=== PATIENT | male | born 1945 | race Caucasian/White ===

== ENCOUNTER 2016-07-13 12:03 | Emergency (ER) | payer MEDICARE, BC ==
[~2016-07-13] VITALS: Ht 170.2 cm; Wt 75.0 kg
[2016-07-13 12:12] VITALS: BP 158/84; PULSE 74; RESP 15; TEMP 97.9; O2SAT 98
[2016-07-13] MEDS ORDERED: TRAM50TA PO (12:14)
[2016-07-13] MEDS ORDERED: DICY10CA12 PO (12:14)
[2016-07-13] MEDS ORDERED: PREG25 PO (12:14)
--- NOTE | 2016-07-13 12:16 | PD ---
HPI Chief Complaint: Back/ Neck Pain or Injury Time Seen by Provider: 12:16 Travel History International Travel<30 days: No Contact w/Intl Traveler<30days: No Traveled to known affect area: No History of Present Illness HPI 70-year-old male with history of sciatica presents to emergency department for evaluation of exacerbation of this pain. Patient states he has been to the chiropractor. Out image x-ray has been complete with outpatient MRI recommended for further evaluation. He has been on several long road trips the last being to [place] and back by bus. The pain lies in his right lower back and at times radiates to his buttock. He has had no saddle paresthesia, loss of bowel or bladder, lower extremity weakness. He does not recall an injury. Has had no recent illnesses, fever, chills. No urinary symptoms. No other symptoms to report. PFSH Past Medical History Cardiovascular Problems: Yes (2 stents) Social History Alcohol Use: No Tobacco Use: No Allergies-Medications (Allergen,Severity, Reaction): Coded Allergies: Avelox (Verified Allergy, Intermediate, Hives, 07/13/16) Codeine (Verified Allergy, Intermediate, 07/13/16) rash Penicillin (Verified Allergy, Intermediate, 07/13/16) rash Reported Meds & Prescriptions Reported Meds & Active Scripts Active Reported Dicyclomine (Dicyclomine HCl) 10 Mg Cap 10 Mg PO DAILY Lyrica (Pregabalin) 25 Mg Cap 25 Mg PO BID PRN Tramadol (Tramadol HCl) 50 Mg Tab 50 Mg PO Q6HR PRN Review of Systems Except as stated in HPI: all other systems reviewed are Neg Physical Exam Narrative GENERAL: Well-nourished elderly male patient, ambulatory with a non-antalgic gait no acute distress SKIN: Warm and dry. HEAD: Atraumatic. Normocephalic. EYES: Pupils equal and round. No scleral icterus. No injection or drainage. ENT: No nasal bleeding or discharge. Mucous membranes pink and moist. NECK: Trachea midline. No JVD. CARDIOVASCULAR: Regular rate and rhythm. No murmur appreciated. RESPIRATORY: No accessory muscle use. Clear to auscultation. Breath sounds equal bilaterally. GASTROINTESTINAL: Abdomen soft, non-tender, nondistended. Hepatic and splenic margins not palpable. MUSCULOSKELETAL: No obvious deformities. No clubbing. No cyanosis. No edema. Positive straight leg right lower extremities. 2+ lower extremity reflex. Tenderness elicited palpation over the right sacroiliac joint. NEUROLOGICAL: Awake and alert. No obvious cranial nerve deficits. Motor grossly within normal limits. Normal speech. PSYCHIATRIC: Appropriate mood and affect; insight and judgment normal. Data Data Last Documented VS Vital Signs Date Time Temp Pulse Resp B/P Pulse Ox O2 Delivery O2 Flow Rate FiO2 07/13/16 12:12 97.9 74 15 158/84 98 Orders Orphenadrine Inj (Norflex Inj) (07/13/16 12:30) Ketorolac Inj (Toradol Inj) (07/13/16 12:30) Splint Or Brace Apply/Monitor (07/13/16 12:33) MDM Medical Decision Making Medical Screen Exam Complete: Yes Emergency Medical Condition: Yes Medical Record Reviewed: Yes Differential Diagnosis Sciatica versus low back strain versus discogenic pain versus radiculopathy Narrative Course 70-year-old male presents to the emergency department for evaluation of exacerbation of right sided sciatica pain. Patient appears without distress. Neuro exam is nonfocal. Tenderness elicited palpation of the right sacroiliac joint. Patient is given quick draw back brace and Norflex and Toradol here in the emergency department. He'll be discharged home with Robaxin and ibuprofen. He is encouraged follow-up with primary care provider and return immediately with any acute worsening of symptoms. Diagnosis Primary Impression: Sciatica of right side Referrals: Primary Care Physician Patient Instructions: General Instructions, Sciatica (ED) Additional Instructions: Avoid heavy lifting, bending, and twisting Wear brace when ambulatory. Do not wear this at all times as it may weaken your core muscles, worsening your back pain Follow-up with a primary care provider Return immediately with any acute worsening of symptoms Med/Other Pt SpecificInfo: Prescription(s) given Scripts Ibuprofen 600 Mg [id number] Mg PO Q8HR PRN (PAIN) #30 TAB Ref 0 Prov:Valeria Aragon 07/13/16 Methocarbamol (Robaxin)500 Mg [id number] Mg PO QID PRN (MUSCLE SPASM) #20 TAB Ref 0 Prov:Valeria Aragon 07/13/16 Disposition: 01 DISCHARGE HOME Condition: Stable Valeria Aragon Jul 13, 2016 12:16
[2016-07-13] MEDS ORDERED: ORPHENADRINE INJ 60 MG/2 ML AMP IM ONE (12:30)
[2016-07-13] MEDS ORDERED: KETOROLAC TROMETHAMINE 60 MG/2 ML (IM) VIAL IM ONE (12:30)
[2016-07-13] MEDS ORDERED: ROBA500T PO (13:07)
[2016-07-13] MEDS ORDERED: IBUP-232 PO (13:07)
[2016-07-13 14:45] VITALS: BP 129/84
== END 2016-07-13 14:45 | disposition home or self-care (01) ==
LOC: NEPE 12:03
DX: M54.31 Sciatica, right side (principal)
CPT/HCPCS: 96372; 99283; J1885; J2360; L0627